=== PATIENT | female | born 1950 | race Caucasian/White ===

== ENCOUNTER → 2018-10-15 12:40 | Outpatient (CLI) | payer MEDICARE ==
--- NOTE | 2018-10-16 14:32 | EC ---
PATIENT:LINDA KRAUSE DATE OF SERVICE: 10/15/18 SEX: F MEDICAL RECORD: [id number] DATE OF : [birth year] [facility] AGE OF PATIENT: 68 ADMISSION DATE: 10/15/18 REFERRING PHYSICIAN: INTERPRETING PHYSICIAN: LAZARUS LEBLANC MD ECHOCARDIOGRAM REPORT ECHO CHARGES 4 ECHO COMPLETE Date: 10/15/18 CLINICAL DIAGNOSIS: MITRAL REGURG ECHOCARDIOGRAPHIC MEASUREMENTS (adult normal given) AC root (d.<3.7cm) 3.0 cm LV Septum d (<1.2 cm> 1.1 cm Valve Excursion 1.5 cm LV Septum (systole) 1.2 cm Left Atria (s.<4.0cm> 3.5 cm LVPW d(<1.2cm) 1.0 cm RV (d.<2.3cm) 2.8 cm LVPW (sytole) 1.2 cm LV diastole(<5.6CM) 4.2 cm MV E-F(>70mm/sec) cm LV systole 2.7 cm LVOT Diameter 1.9 cm MV exc.(>10mm) 1.9 cm Est.ejection fraction (50-75%) % DOPPLER: LVIT cm/sec A 80.0 cm/sec E 56.0 cm/sec LA cm/sec RVSP 34 mmHg LVOT 93 cm/sec AOP1/2T m/s Asc. Ao 124 cm/sec RVOT 73 cm/sec RA cm/sec PA 97 cm/sec AV Gradient Peak 6.14 mmHg AV Mean 2.93 mmHg AV Area 2.2 cm MV Gradient Peak 3.35 mmHg MV Mean 1.55 mmHg MV Area cm COMMENTS: Car Seat Upholsterer: Obi BURROUGHS Hat Band Attacher: 1 Dr. Leblanc TAPE# PACS Pericardial Effusion N DATE OF SERVICE: 10/15/2018 ECHOCARDIOGRAM FINDINGS: 1. Left ventricular chamber size is within normal limits. Left ventricular systolic function is normal at 65%. 2. Left atrium, right atrium, and right ventricular chamber sizes are within normal limits. 3. Valvular structures have normal structure and motion. ECHOCARDIOGRAM REPORT [id number] LINDA KRAUSE 4. Doppler interrogation reveals mild mitral regurgitation, mild tricuspid regurgitation, no other valvular insufficiency or stenosis. Pulmonary systolic pressure is estimated at 34 mmHg. 5. No evidence of pericardial effusion or left ventricular thrombus. TRANSINT:[id number] Voice Confirmation ID: [id number] DOCUMENT ID: [id number] LAZARUS LEBLANC MD at 1432 CC: [id number] DICTATION DATE: 10/16/18 1015 WAREHOUSE HANDLER: 10/16/18 1216 DEP CLI 10/15/18 [place] [id number] [place] [id number]
== END | disposition home or self-care (01) ==
LOC: D.HCCECHO 12:40 → D.HCCARDIO 13:00
PROVIDERS: ATTEND Internal Medicine Interventional Cardiology
DX: I34.0 Nonrheumatic mitral (valve) insufficiency (principal)